=== PATIENT | male | born 2000 | race Native Hawaiian/Other Pacific Islander ===

== ENCOUNTER 2022-01-17 15:29 | Emergency (ER) | payer SELFPAY ==
[~2022-01-17] VITALS: Ht 165.1 cm; Wt 83.2 kg
[2022-01-17 15:43] VITALS: BP 83/58
== END 2022-01-17 17:25 | disposition short-term general hospital (02) ==
LOC: ED 15:29
DX: S63.064A Dislocation of metacarpal (bone), proximal end of right hand, initial encounter (principal); F17.290 Nicotine dependence, other tobacco product, uncomplicated; W10.8XXA Fall (on) (from) other stairs and steps, initial encounter; Y92.009 Unspecified place in unspecified non-institutional (private) residence as the place of occurrence of the external cause
CPT/HCPCS: J2405; J3010